=== PATIENT | female | born 1975 | race Caucasian/White ===

== ENCOUNTER → 2023-10-28 10:15 | Outpatient (REF) | payer BC, SELFPAY | LOC: HWWDC 10:15 | DX: Z12.31 Encounter for screening mammogram for malignant neoplasm of breast (principal) | CPT/HCPCS: 77063; 77067 ==

== ENCOUNTER 2024-07-12 09:03 | Outpatient (RCR) | payer BC, SELFPAY | END 2024-07-12 23:59 | disposition home or self-care (01) | LOC: RPT 09:03 | PROVIDERS: ATTENDING PHYSICIAN Physician Assistant | DX: M25.561 Pain in right knee (principal); S83.241S Other tear of medial meniscus, current injury, right knee, sequela; M66.0 Rupture of popliteal cyst; Z73.6 Limitation of activities due to disability | CPT/HCPCS: 97110; 97112; 97161 ==

== ENCOUNTER 2024-08-09 09:13 | Outpatient (RCR) | payer BC, SELFPAY | END 2024-08-09 23:59 | disposition home or self-care (01) | LOC: RPT 09:13 | PROVIDERS: ATTENDING PHYSICIAN Physician Assistant | DX: M25.561 Pain in right knee (principal); S83.241S Other tear of medial meniscus, current injury, right knee, sequela; M66.0 Rupture of popliteal cyst; Z73.6 Limitation of activities due to disability | CPT/HCPCS: 97110; 97112; 97140 ==

== ENCOUNTER → 2024-10-28 08:44 | Outpatient (REF) | payer BC, SELFPAY | LOC: HWWDC 08:44 | DX: Z12.31 Encounter for screening mammogram for malignant neoplasm of breast (principal) | CPT/HCPCS: 77063; 77067 ==

== ENCOUNTER → 2024-12-15 09:58 | Outpatient (REF) | payer BC, SELFPAY | LOC: HWRAD 09:58 | DX: Z79.899 Other long term (current) drug therapy (principal); R53.82 Chronic fatigue, unspecified | CPT/HCPCS: 76536 ==